=== PATIENT | female | born 1960 | race Caucasian/White ===

== ENCOUNTER 2022-07-22 22:31 | Emergency (ER) | payer MEDICAID ==
[~2022-07-22] VITALS: Ht 154.9 cm; Wt 39.0 kg
[2022-07-23 02:32] LABS: CLARITY,URINE CLEAR (Clear); COLOR,URINE YELLOW (Yellow); GLUCOSE, URINE NEGATIVE (Neg); KETONES,URINE 15 mg/dl (Neg); LEUKOCYTE ESTERASE ,URINE NEGATIVE (Neg); NITRITES, URINE NEGATIVE (Neg); OCCULT BLOOD,URINE NEGATIVE (Neg); PROTEIN,URINE NEGATIVE (Neg); UROBILINOGEN,URINE 0.2 E.U/dL (0.2-1.0)
[2022-07-23 02:33] LABS: UA COLLECTION TYPE CLN CATCH MIDSTREAM
[2022-07-23 03:12] LABS: BASOPHILS % (AUTO) 0.4 % (0-1); EOSINOPHILS % (AUTO) 0.3 % (0-6); HEMATOCRIT 28.6 % (35.0-45.0); HEMOGLOBIN 9.3 g/dl (12.0-16.0); LYMPHOCYTES % (AUTO) 10.9 % (21-51); MEAN CORPUSCULAR HEMOGLOBIN 25.3 PG (27.0-31.0); MEAN CORPUSCULAR HGB CONC 32.6 g/dL (33.0-36.5); MEAN CORPUSCULAR VOLUME 77.4 FL (78-98); MEAN PLATELET VOLUME 6.5 FL (7.4-10.4); MONOCYTES # (AUTO) 0.6 X10'3 (0-0.9); MONOCYTES % (AUTO) 6.2 % (2-12); NEUTROPHILS # (AUTO) 7.8 X10'3 (1.8-7.7); NEUTROPHILS % (AUTO) 82.2 % (42-75); PLATELET COUNT 483 X10'3 (140-440); RED CELL DISTRIBUTION WIDTH 22.5 % (11.5-14.5); WHITE BLOOD COUNT 9.5 X10'3 (4.5-11.0)
[2022-07-23 03:23] LABS: ALANINE AMINOTRANSFERASE 16 U/L (12-78); ALBUMIN 3.5 G/DL (3.4-5.0); ALBUMIN/GLOBULIN RATIO 0.7 (1.1-1.5); ALKALINE PHOSPHATASE 78 IU/L (46-116); ANION GAP 11 (8-16); ASPARTATE AMINO TRANSFERASE 12 U/L (10-37); BILIRUBIN,TOTAL 0.4 MG/DL (0.1-1.0); BLOOD UREA NITROGEN 42 MG/DL (7-18); BUN/CREATININE RATIO 39.6 (10.0-20.0); CHLORIDE 98 MMOL/L (99-107); CREATININE 1.06 MG/DL (0.40-0.90); POTASSIUM 3.1 MMOL/L (3.5-5.1); SODIUM 134 MMOL/L (135-145); TOTAL CARBON DIOXIDE 24.6 MMOL/L (24-32); TOTAL PROTEIN 8.7 G/DL (6.4-8.2); eGFR 52 ML/MIN
[2022-07-23 03:32] LABS: GLUCOSE 144 MG/DL (70-104)
[2022-07-23 04:28] VITALS: BP 102/73
[2022-07-23 04:36] LABS: ANISOCYTOSIS 3+; MICROCYTOSIS 1+; PLATELET ESTIMATE INCREASED
[2022-07-23] MEDS ORDERED: potassium Cl 20 mEq SR tablet PO ONE (05:20)
[2022-07-23] MEDS ORDERED: potassium Cl 20 mEq SR tablet ONE (05:30)
== END 2022-07-23 05:43 | disposition home or self-care (01) ==
LOC: ER 22:32
DX: K59.00 Constipation, unspecified (principal); E87.6 Hypokalemia; R10.31 Right lower quadrant pain; R10.32 Left lower quadrant pain; I10 Essential (primary) hypertension; F32.9 Major depressive disorder, single episode, unspecified; F20.9 Schizophrenia, unspecified; Z86.73 Personal history of transient ischemic attack (TIA), and cerebral infarction without residual deficits; Z79.899 Other long term (current) drug therapy
CPT/HCPCS: 36415; 74022; 80053; 81003; 85008; 85025; 99284

== ENCOUNTER 2023-05-17 13:43 | Inpatient (IN) | payer MEDICAID ==
[~2023-05-17] VITALS: Ht 154.9 cm; Wt 31.9 kg
[2023-05-17 14:39] LABS: BASOPHILS % (AUTO) 0.3 % (0-1); EOSINOPHILS % (AUTO) 0.2 % (0-6); HEMATOCRIT 37.4 % (35.0-45.0); HEMOGLOBIN 11.9 g/dl (12.0-16.0); LYMPHOCYTES # (AUTO) 1.8 X10'3 (1.1-4.8); LYMPHOCYTES % (AUTO) 18.8 % (21-51); MEAN CORPUSCULAR HEMOGLOBIN 24.9 PG (27.0-31.0); MEAN CORPUSCULAR HGB CONC 31.9 g/dL (33.0-36.5); MEAN CORPUSCULAR VOLUME 77.9 FL (78-98); MEAN PLATELET VOLUME 7.1 FL (7.4-10.4); MONOCYTES # (AUTO) 0.5 X10'3 (0-0.9); MONOCYTES % (AUTO) 4.9 % (2-12); NEUTROPHILS # (AUTO) 7.2 X10'3 (1.8-7.7); NEUTROPHILS % (AUTO) 75.8 % (42-75); PLATELET COUNT 410 X10'3 (140-440); RED CELL DISTRIBUTION WIDTH 19.3 % (11.5-14.5); WHITE BLOOD COUNT 9.5 X10'3 (4.5-11.0)
[2023-05-17 14:52] LABS: APTT 27 SECONDS (22-32); INR 1.1 INR; PROTHROMBIN TIME 11.4 SECONDS (9.0-12.0)
[2023-05-17 14:56] LABS: ALBUMIN 3.4 G/DL (3.4-5.0); ALBUMIN/GLOBULIN RATIO 0.5 (1.1-1.5); ALKALINE PHOSPHATASE 124 IU/L (46-116); ANION GAP 11 (8-16); ASPARTATE AMINO TRANSFERASE 11 U/L (10-37); BILIRUBIN,TOTAL 0.4 MG/DL (0.1-1.0); BLOOD UREA NITROGEN 40 MG/DL (7-18); BUN/CREATININE RATIO 26.8 (10.0-20.0); CALCIUM 9.9 MG/DL (8.5-10.1); CHLORIDE 97 MMOL/L (99-107); CREATININE 1.49 MG/DL (0.40-0.90); GLUCOSE 124 MG/DL (70-104); LIPASE 18 U/L (16-77); SODIUM 136 MMOL/L (135-145); TOTAL CARBON DIOXIDE 28.4 MMOL/L (24-32); eCRCL 19 ML/MIN; eGFR 35 ML/MIN
[2023-05-17 14:57] LABS: ANISOCYTOSIS 2+; MICROCYTOSIS 1+; PLATELET ESTIMATE NORMAL
[2023-05-17 15:05] LABS: ALANINE AMINOTRANSFERASE < 6 U/L (12-78)
[2023-05-17 16:12] LABS: BILIRUBIN,URINE SMALL (Neg); CLARITY,URINE TURBID (Clear); COLOR,URINE YELLOW (Yellow); GLUCOSE, URINE NEGATIVE (Neg); KETONES,URINE NEGATIVE (Neg); LEUKOCYTE ESTERASE ,URINE TRACE (Neg); NITRITES, URINE NEGATIVE (Neg); OCCULT BLOOD,URINE LARGE (Neg); PROTEIN,URINE 30 mg/dl (Neg); UROBILINOGEN,URINE 0.2 E.U/dL (0.2-1.0)
[2023-05-17 16:23] LABS: SQUAMOUS EPITHELIAL CELL,UR MANY /LPF (FEW); UA COLLECTION TYPE CLN CATCH MIDSTREAM
[2023-05-17 16:24] LABS: HYALINE CASTS >30 /LPF (NEGATIVE)
[2023-05-17 16:25] LABS: RBC,URINE 50-100 /HPF (0-2); TRANSITIONAL EPI CELLS,URINE MODERATE /HPF
[2023-05-17 16:26] LABS: AMORPHOUS URATES 1+; BACTERIA,URINE 1+ /HPF (Neg); WBC,URINE 30-50 /HPF (0-4)
[2023-05-17] MEDS ORDERED: NO HOME MEDS (17:04)
[2023-05-17] MEDS ORDERED: mag hydrox/Alum hydrox/simeth 30ml oral suspension PO PRN (19:30)
[2023-05-17] MEDS ORDERED: magnesium Cl slow-release 64mg tablet PO PRN (19:30)
[2023-05-17] MEDS ORDERED: ondansetron/PF 4mg/2ml inj IV PRN (19:30)
[2023-05-17] MEDS ORDERED: acetaminophen 325mg tablet PO PRN (19:30)
[2023-05-17] MEDS ORDERED: morphine 2 MG/ML inj. syringe IV PRN (19:30)
[2023-05-17] MEDS ORDERED: potassium Cl 20 mEq SR tablet PO PRN ×2 (19:30)
[2023-05-17] MEDS ORDERED: magnesium hydroxide 30ml (MOM) UD suspension PO PRN (19:30)
[2023-05-17] MEDS: potassium CL 10mEq/100ml bag 100 ML IV SCH (19:44)
[2023-05-17] MEDS: normal saline 1000ml 1,000 ML IV SCH (19:59)
[2023-05-17] MEDS: K and/or MAG REPLACEMENT MC SCH (20:00)
[2023-05-17] MEDS: heparin, porcine 5000 units/ml vial SQ SCH (20:01)
[2023-05-18] VITALS (10 sets, daily range): BP systolic 105–147; BP diastolic 65–96; PULSE 72–81; RESP 13–18; TEMP 97–98; O2SAT 96–100
[2023-05-18] MEDS: CefTRIAXone/D5W-Rocephin 1gm 50 ML IV ONE (05:59)
[2023-05-18 07:39] LABS: BASOPHILS % (AUTO) 0.5 % (0-1); EOSINOPHILS # (AUTO) 0.1 X10'3 (0-0.9); EOSINOPHILS % (AUTO) 1.5 % (0-6); HEMATOCRIT 30.6 % (35.0-45.0); HEMOGLOBIN 9.8 g/dl (12.0-16.0); LYMPHOCYTES # (AUTO) 2.1 X10'3 (1.1-4.8); LYMPHOCYTES % (AUTO) 36.1 % (21-51); MEAN CORPUSCULAR HEMOGLOBIN 24.8 PG (27.0-31.0); MEAN CORPUSCULAR VOLUME 77.5 FL (78-98); MEAN PLATELET VOLUME 7.1 FL (7.4-10.4); MONOCYTES # (AUTO) 0.6 X10'3 (0-0.9); MONOCYTES % (AUTO) 9.7 % (2-12); NEUTROPHILS # (AUTO) 3.1 X10'3 (1.8-7.7); NEUTROPHILS % (AUTO) 52.2 % (42-75); PLATELET COUNT 372 X10'3 (140-440); RED BLOOD COUNT 3.94 X10'6 (4.20-5.60); RED CELL DISTRIBUTION WIDTH 19.8 % (11.5-14.5); WHITE BLOOD COUNT 5.9 X10'3 (4.5-11.0)
[2023-05-18 07:56] LABS: ALBUMIN 2.5 G/DL (3.4-5.0); ALBUMIN/GLOBULIN RATIO 0.5 (1.1-1.5); ALKALINE PHOSPHATASE 96 IU/L (46-116); ANION GAP 5 (8-16); ASPARTATE AMINO TRANSFERASE 13 U/L (10-37); BILIRUBIN,TOTAL 0.3 MG/DL (0.1-1.0); BLOOD UREA NITROGEN 33 MG/DL (7-18); BUN/CREATININE RATIO 28.2 (10.0-20.0); CALCIUM 8.3 MG/DL (8.5-10.1); CHLORIDE 105 MMOL/L (99-107); CREATININE 1.17 MG/DL (0.40-0.90); GLUCOSE 96 MG/DL (70-104); MAGNESIUM 1.8 MG/DL (1.5-2.4); POTASSIUM 4.1 MMOL/L (3.5-5.1); SODIUM 140 MMOL/L (135-145); TOTAL CARBON DIOXIDE 30.2 MMOL/L (24-32); TOTAL PROTEIN 7.6 G/DL (6.4-8.2); eCRCL 24 ML/MIN; eGFR 47 ML/MIN
[2023-05-18 08:19] LABS: ALANINE AMINOTRANSFERASE < 6 U/L (12-78)
[2023-05-18] MEDS: pantoprazole 40 MG vial IV SCH (09:07)
[2023-05-18] MEDS ORDERED: LIDOcaine Viscous 15ml cup ONE (13:05)
[2023-05-18] MEDS ORDERED: fentaNYL/PF 50MCG/1 ML 2ML syringe ONE (13:05)
[2023-05-18] MEDS ORDERED: MIDAZolam 1 MG/ML 5ML VIAL ONE (13:05)
[2023-05-19] VITALS (7 sets, daily range): BP systolic 115–133; BP diastolic 70–84; PULSE 74–91; RESP 15–21; TEMP 97.7–99.1; O2SAT 94–100
[2023-05-19 06:48] LABS: BASOPHILS % (AUTO) 0.3 % (0-1); EOSINOPHILS % (AUTO) 0.3 % (0-6); HEMATOCRIT 27.6 % (35.0-45.0); HEMOGLOBIN 8.8 g/dl (12.0-16.0); LYMPHOCYTES # (AUTO) 1.1 X10'3 (1.1-4.8); LYMPHOCYTES % (AUTO) 8.8 % (21-51); MEAN CORPUSCULAR HEMOGLOBIN 24.8 PG (27.0-31.0); MEAN CORPUSCULAR HGB CONC 31.9 g/dL (33.0-36.5); MEAN CORPUSCULAR VOLUME 77.8 FL (78-98); MEAN PLATELET VOLUME 7.3 FL (7.4-10.4); MONOCYTES # (AUTO) 0.4 X10'3 (0-0.9); MONOCYTES % (AUTO) 3.3 % (2-12); NEUTROPHILS # (AUTO) 10.7 X10'3 (1.8-7.7); NEUTROPHILS % (AUTO) 87.3 % (42-75); PLATELET COUNT 327 X10'3 (140-440); RED BLOOD COUNT 3.55 X10'6 (4.20-5.60); RED CELL DISTRIBUTION WIDTH 19.1 % (11.5-14.5); WHITE BLOOD COUNT 12.3 X10'3 (4.5-11.0)
[2023-05-19 06:57] LABS: ALBUMIN 2.2 G/DL (3.4-5.0); ALBUMIN/GLOBULIN RATIO 0.5 (1.1-1.5); ALKALINE PHOSPHATASE 89 IU/L (46-116); ANION GAP 16 (8-16); ASPARTATE AMINO TRANSFERASE 13 U/L (10-37); BILIRUBIN,TOTAL 0.4 MG/DL (0.1-1.0); BLOOD UREA NITROGEN 20 MG/DL (7-18); BUN/CREATININE RATIO 25.3 (10.0-20.0); CHLORIDE 105 MMOL/L (99-107); CREATININE 0.79 MG/DL (0.40-0.90); MAGNESIUM 1.4 MG/DL (1.5-2.4); SODIUM 140 MMOL/L (135-145); eCRCL 36 ML/MIN; eGFR 73 ML/MIN
[2023-05-19 07:08] LABS: ALANINE AMINOTRANSFERASE < 6 U/L (12-78)
[2023-05-19 07:17] LABS: GLUCOSE 42 MG/DL (70-104); POTASSIUM 2.6 MMOL/L (3.5-5.1)
[2023-05-19] MEDS: glucagon, human recombinant 1mg kit IM ONE (07:49)
[2023-05-19] MEDS: magnesium 4gm in 100ml NS 100 ML IV PRN (07:49)
[2023-05-19] MEDS: potassium Cl 40MEQ/1/2NS 520ml 520 ML IV PRN (08:21)
[2023-05-19] MEDS: magnesium 2GM in 50ml NS 50 ML IV PRN (12:05)
[2023-05-19 18:14] LABS: BASOPHILS # (AUTO) 0.1 X10'3 (0-0.2); BASOPHILS % (AUTO) 0.4 % (0-1); EOSINOPHILS % (AUTO) 0.1 % (0-6); HEMATOCRIT 32.4 % (35.0-45.0); HEMOGLOBIN 10.5 g/dl (12.0-16.0); LYMPHOCYTES # (AUTO) 1.9 X10'3 (1.1-4.8); LYMPHOCYTES % (AUTO) 11.4 % (21-51); MEAN CORPUSCULAR HEMOGLOBIN 24.9 PG (27.0-31.0); MEAN CORPUSCULAR HGB CONC 32.3 g/dL (33.0-36.5); MEAN CORPUSCULAR VOLUME 77.3 FL (78-98); MEAN PLATELET VOLUME 6.9 FL (7.4-10.4); MONOCYTES # (AUTO) 0.6 X10'3 (0-0.9); MONOCYTES % (AUTO) 3.8 % (2-12); NEUTROPHILS # (AUTO) 13.8 X10'3 (1.8-7.7); NEUTROPHILS % (AUTO) 84.3 % (42-75); PLATELET COUNT 372 X10'3 (140-440); RED CELL DISTRIBUTION WIDTH 19.7 % (11.5-14.5); WHITE BLOOD COUNT 16.3 X10'3 (4.5-11.0)
[2023-05-19 19:06] LABS: ANISOCYTOSIS 2+; MICROCYTOSIS 1+; PLATELET ESTIMATE NORMAL
[2023-05-19 19:09] LABS: ELLIPTOCYTES FEW; POIKILOCYTOSIS FEW
[2023-05-19] MEDS: pantoprazole 40mg Tablet.DR PO SCH (20:32)
[2023-05-20 02:00] VITALS: BP 112/76; PULSE 75; RESP 18; TEMP 99; O2SAT 100
[2023-05-20 06:00] VITALS: BP 112/69; PULSE 78; RESP 15; TEMP 98; O2SAT 94
[2023-05-20 07:39] LABS: BASOPHILS % (AUTO) 0.5 % (0-1); EOSINOPHILS # (AUTO) 0.1 X10'3 (0-0.9); EOSINOPHILS % (AUTO) 0.9 % (0-6); HEMATOCRIT 26.7 % (35.0-45.0); HEMOGLOBIN 8.7 g/dl (12.0-16.0); LYMPHOCYTES # (AUTO) 1.9 X10'3 (1.1-4.8); LYMPHOCYTES % (AUTO) 18.7 % (21-51); MEAN CORPUSCULAR HEMOGLOBIN 24.9 PG (27.0-31.0); MEAN CORPUSCULAR HGB CONC 32.5 g/dL (33.0-36.5); MEAN CORPUSCULAR VOLUME 76.5 FL (78-98); MEAN PLATELET VOLUME 7.2 FL (7.4-10.4); MONOCYTES # (AUTO) 0.5 X10'3 (0-0.9); MONOCYTES % (AUTO) 4.7 % (2-12); NEUTROPHILS # (AUTO) 7.8 X10'3 (1.8-7.7); NEUTROPHILS % (AUTO) 75.2 % (42-75); PLATELET COUNT 330 X10'3 (140-440); RED BLOOD COUNT 3.49 X10'6 (4.20-5.60); RED CELL DISTRIBUTION WIDTH 19.9 % (11.5-14.5); WHITE BLOOD COUNT 10.4 X10'3 (4.5-11.0)
[2023-05-20 07:56] LABS: ALBUMIN 1.8 G/DL (3.4-5.0); ALBUMIN/GLOBULIN RATIO 0.4 (1.1-1.5); ALKALINE PHOSPHATASE 82 IU/L (46-116); ANION GAP 7 (8-16); ASPARTATE AMINO TRANSFERASE 8 U/L (10-37); BILIRUBIN,TOTAL 0.3 MG/DL (0.1-1.0); BLOOD UREA NITROGEN 7 MG/DL (7-18); BUN/CREATININE RATIO 10.6 (10.0-20.0); CALCIUM 7.2 MG/DL (8.5-10.1); CHLORIDE 105 MMOL/L (99-107); CREATININE 0.66 MG/DL (0.40-0.90); GLUCOSE 79 MG/DL (70-104); MAGNESIUM 1.8 MG/DL (1.5-2.4); POTASSIUM 3.4 MMOL/L (3.5-5.1); SODIUM 136 MMOL/L (135-145); TOTAL CARBON DIOXIDE 24.1 MMOL/L (24-32); eCRCL 43 ML/MIN; eGFR 90 ML/MIN
[2023-05-20 07:57] LABS: ALANINE AMINOTRANSFERASE < 6 U/L (12-78)
[2023-05-20 08:56] LABS: HBSAG SCREEN Negative (Negative); HEP B CORE AB, IGM Negative (Negative); HEP B CORE AB, TOT Negative (Negative)
[2023-05-20 09:29] LABS: ANISOCYTOSIS 2+; MICROCYTOSIS 1+; PLATELET ESTIMATE NORMAL; POIKILOCYTOSIS FEW
[2023-05-20 11:00] VITALS: BP 128/83; PULSE 83; RESP 16; TEMP 97.9; O2SAT 95
[2023-05-20 11:34] LABS: FERRITIN 45 NG/ML (8-252)
[2023-05-20 11:47] LABS: % IRON SATURATION 12 % (11-46); IRON 31 UG/DL (49-151); TOTAL IRON BINDING CAPACITY 262 UG/DL (259-388)
[2023-05-20] MEDS ORDERED: APIX5TAB3 PO (13:17)
[2023-05-20] MEDS ORDERED: PANT40TA54 PO (13:17)
[2023-05-20] MEDS ORDERED: CHOL-4 PO (13:29)
[2023-05-20] MEDS ORDERED: FOLI0.8T5 PO (13:29)
[2023-05-20] MEDS ORDERED: IRON1CAP4 PO (13:29)
[2023-05-22 12:17] LABS: A/G RATIO 0.6 (0.7-1.7); ALBUMIN 2.6 g/dL (2.9-4.4); ALPHA-1-GLOBULIN 0.3 g/dL (0.0-0.4); ALPHA-2-GLOBULIN 0.8 g/dL (0.4-1.0); BETA GLOBULIN 1.1 g/dL (0.7-1.3); GAMMA GLOBULIN 2.4 g/dL (0.4-1.8); GLOBULIN, TOTAL 4.6 g/dL (2.2-3.9); M-SPIKE Not Observed g/dL (Not Observed); PROTEIN, TOTAL, SERUM 7.2 g/dL (6.0-8.5)
== END 2023-05-20 15:00 | disposition home or self-care (01) | DRG 422 ==
LOC: ER 13:43 → ED HOLD 19:38 → PCU 3S 05-18 11:24
PROVIDERS: ADMIT Internal Medicine; ATTEND Internal Medicine
DX: E86.0 Dehydration (principal); N17.0 Acute kidney failure with tubular necrosis; E43 Unspecified severe protein-calorie malnutrition; K22.89 Other specified disease of esophagus; I10 Essential (primary) hypertension; E87.6 Hypokalemia; D50.9 Iron deficiency anemia, unspecified; Z86.718 Personal history of other venous thrombosis and embolism; Z87.11 Personal history of peptic ulcer disease; Z79.899 Other long term (current) drug therapy; Z68.1 Body mass index [BMI] 19.9 or less, adult
CPT/HCPCS: 36415; 43247; 43249; 71045; 80053; 81001; 82728; 82948; 83540; 83550; 83690; 83735; 84132; 84145; 84155; 84165; 84484; 85008; 85025; 85610; 85651; 85730; 86704; 86705; 87340; 96365; 96375; 99152; 99285; A4620; C1726; C1889; C9113; G0378; J0696; J1610; J1644; J2250; J3010; J3475; J3480; J7030; J7040